=== PATIENT | male | born 1955 | race Caucasian/White ===

== ENCOUNTER 2022-08-24 12:34 | Outpatient (CLI) | payer MEDICARE, SELFPAY ==
--- NOTE | ~2022-08-24 | CT_ITS ---
CT of the Abdomen and Pelvis: Indication: Gross hematuria Technique: 2.5 mm axial scans were obtained through the abdomen and pelvis prior to and following in travenous administration of 130 cc of Omnipaque 350. Dose reduction technique was used on this scan b y utilizing automated exposure control and iterative reconstruction technique. The dose-length produc t (DLP) was 1044.84 mGy-cm. Findings: Scans through the lung bases demonstrate a 1.5 cm left lower lobe pulmonary nodule with mu ltiple adjacent subcentimeter satellite nodules.. The liver, spleen, pancreas, gallbladder, and adrenal glands are within normal limits. Bilateral azael l cysts are present. There are 2 adjacent stones in the distal left ureter measuring approximately 3 mm in diameter each. No hydronephrosis. No evidence of aortic aneurysm. No lymphadenopathy. No bowel obstruction or bowel wall thickening. There is no evidence to suggest acute appendicitis. Images through the pelvis were performed. Urinary bladder unremarkable. Prostate gland is enlarged. N o ascites. Impression: 2 adjacent 3 mm stones in the distal left ureter. No hydronephrosis. Enlarged prostate gland. 1.5 cm left lower lobe pulmonary nodule with multiple nearby subcentimeter satellite nodules. This le shelby is indeterminate, but neoplasm is a consideration. Consider tissue sampling and/or PET/CT to fur ther evaluate. Reviewed, dictated and finalized at location . Impression: 2 adjacent 3 mm stones in the distal left ureter. No hydronephrosis. Enlarged prostate gland. 1.5 cm left lower lobe pulmonary nodule with multiple nearby subcentimeter sate llite nodules. This lesion is indeterminate, but neoplasm is a consideration. C onsider tissue sampling and/or PET/CT to further evaluate.
--- NOTE | ~2022-08-24 | XR_ITS ---
XR abdomen/kub 1V 08/24/2022 14:48 Indication: Gross hematuria Procedure: KUB Comparison: No prior studies for comparison. Findings: Bowel gas pattern is nonobstructive. Moderate colonic fecal loading. There are are pelvic c alcifications, compatible with phleboliths. No acute osseous abnormality. Impression: 1: No acute abdominal abnormality. Reviewed, dictated and finalized at location B. Impression: 1: No acute abdominal abnormality.
[2022-08-24 13:56] LABS: Estimated Glomerular Filt Rate > 60
== END 2022-08-24 12:35 | disposition home or self-care (01) ==
PROVIDERS: PCP Family Medicine Sports Medicine; Visit Provider Nurse Practitioner Adult Health
DX: R31.0 Gross hematuria (principal); N20.1 Calculus of ureter; N40.0 Benign prostatic hyperplasia without lower urinary tract symptoms; R91.1 Solitary pulmonary nodule
CPT/HCPCS: 74018; 74178; Q9967

== ENCOUNTER 2022-09-26 09:01 | Outpatient (CLI) | payer MEDICARE, SELFPAY ==
--- NOTE | ~2022-09-26 | CT_ITS ---
Non-contrast CT scan of the Abdomen and Pelvis Clinical indication: Left ureteral stone Technique: 2.5 mm axial scans were obtained through the abdomen and pelvis without intravenous or or al contrast. Dose reduction technique was used on this scan by utilizing automated exposure control a nd iterative reconstruction technique. The dose-length product (DLP) was 192.29 mGy-cm. COMPARISON: 08/24/2022 Findings: Images through the lung bases reveal stable 1.4 cm left basilar pulmonary nodule. Distal left ureteral stone or adjacent stones are stable in position and size from prior exam. No hyd ronephrosis. No right renal or right ureteral stones. No right hydronephrosis. The liver, spleen, pancreas, gallbladder, and adrenals appear normal. There is no aortic aneurysm. There is no evidence of bowel obstruction. Images through the pelvis were performed. There is no evidence of ascites or lymphadenopathy. Urinary bladder unremarkable. Prostate gland is enlarged, unchanged. Impression: Stable distal left ureteral stones. No hydronephrosis. Stable 1.4 cm with basilar pulmonary nodule, indeterminate. Again, consider tissue sampling and/or PE T CT to further evaluate. At a minimum, 3 month follow-up CT is advised. Enlarged prostate gland. Reviewed, dictated and finalized at [facility]. Impression: Stable distal left ureteral stones. No hydronephrosis. Stable 1.4 cm with basilar pulmonary nodule, indeterminate. Again, consider tis tre sampling and/or PET CT to further evaluate. At a minimum, 3 month follow-up CT is advised. Enlarged prostate gland.
--- NOTE | ~2022-09-26 | XR_ITS ---
Supine and upright views of the abdomen Clinical history: Left ureteral stone COMPARISON: 08/24/2022 Findings: Bowel gas pattern is nonspecific. No evidence for obstruction or free air. No abnormal mass lesion or calcification is seen. Pelvic phleboliths noted. Osseous structures are intact. Impression: No significant abnormality is seen. Reviewed, dictated and finalized at [facility]. Impression: No significant abnormality is seen.
== END 2022-09-26 09:02 | disposition home or self-care (01) ==
PROVIDERS: PCP Family Medicine Sports Medicine; Visit Provider Nurse Practitioner Adult Health
DX: N20.1 Calculus of ureter (principal); N40.0 Benign prostatic hyperplasia without lower urinary tract symptoms; R91.1 Solitary pulmonary nodule
CPT/HCPCS: 74018; 74176

== ENCOUNTER 2022-10-10 08:39 | Outpatient (CLI) | payer MEDICARE, SELFPAY ==
[2022-10-10 09:23] LABS: Anion Gap 2 mmol/L (8-16); Blood Urea Nitrogen 16 mg/dL (9-20); Calcium 9.1 mg/dL (8.4-10.2); Carbon Dioxide 30 mmol/L (22-30); Chloride 104 mmol/L (98-107); Estimated Glomerular Filt Rate > 60; Glucose 92 mg/dL (65-110); Potassium 3.8 mmol/L (3.4-5.0); Sodium 136 mmol/L (137-145)
--- NOTE | 2022-10-10 09:30 | ECG_ITS ---
Measurements Intervals [place] Rate: 63 P: -9 NV: 186 QRS: -15 QRSD: 100 T: 31 QT: 393 QTc: 403 Interpretive Statements SINUS RHYTHM INCOMPLETE RIGHT BUNDLE BRANCH BLOCK BORDERLINE ECG NO PREVIOUS ECG AVAILABLE FOR COMPARISON Electronically Signed On 10-10-2022 9:32:53 CDT by Dale Rodgers D.O.
== END 2022-10-10 08:40 | disposition home or self-care (01) ==
LOC: ANHSURGERY 08:45
PROVIDERS: Anesthesiology; PCP Family Medicine Sports Medicine; Visit Provider Urology
DX: Z51.81 Encounter for therapeutic drug level monitoring (principal); I10 Essential (primary) hypertension; Z01.818 Encounter for other preprocedural examination; I45.10 Unspecified right bundle-branch block
CPT/HCPCS: 36415; 80048; 93005

== ENCOUNTER 2022-10-11 03:28 | Day surgery (SDC) | payer MEDICARE, SELFPAY ==
[2022-10-09 15:31] VITALS: BMI 25.2
--- NOTE | 2022-10-09 15:48 | PC.NURSE ---
Report to the Outpatient Waiting Room, entrance under the green pavilion located off [facility], at time __7:30AM on date _10/11/22 . Planned Procedure Time: __9:30AM . Time changes happen often and if your time is changed the preop area will call you the afternoon before. - You and your visitor will be asked to self-screen and do not enter if you have any COVID symptoms. - A mask is optional within the hospital at this time. Patients may have clear liquids (water, carbonated beverages, clear teas, apple juice) until 3 hours prior to surgery with a maximum of 20 ounces. - No food from midnight until time of surgery Take the following medications with a SIP of water the morning of surgery: __NONE DO NOT STOP ANY OF YOUR OTHER PRESCRIPTION MEDICATIONS PRIOR TO SURGERY ?EXCEPT THE FOLLOWING Medications to discontinue per physician NONE Date to take last dose Please no make-up, nail frisian, hairspray, perfume, deodorant, or body powder the day of surgery. No jewelry (including any body piercings) or valuables the day of surgery, leave them at home. Please take a shower or bath the night before, or the morning of, surgery with an antibacterial soap. Wear comfortable, loose fitting clothing. Children are encouraged to wear pajamas. - Jewelry must be removed prior to entering the operating room. Rings and piercings that are not removed may be cut off. - The hospital will not accept responsibility for valuables. - Please leave all valuables, including medications, at home the day of surgery. If you are going home after surgery, a licensed route sales delivery driver must drive you home. - NO public transportation without another adult if you receive anesthesia. - We recommend that an adult stay with you for 24 hours following discharge. - We also recommend that you do not drive, make important decision, drink alcoholic beverages, or take any drugs that were not prescribed by your health care provider for at least 24 hours after your discharge time. Follow any additional instructions given to you from your surgeon. If you or anyone in your household have experienced Covid symptoms in the past week, please notify your surgeon or the nurse liaison at the phone number below for possible testing. Telephone instructions given to __PATIENT and asked if any additional questions and then verbalized understanding. Patient advised to call surgeon office or pre surgery nurse liaison [phone] if any additional questions.
--- NOTE | 2022-10-10 07:19 | PM.HPGS ---
History of Present Illness History of Present Illness Consent: Risks, benefits, and alternatives have been discussed and questions answered. Patient agrees to proceed with procedure. Chief complaint: Lt Ureteral Stone Narrative: Florentino Hatfield is a 67 year old male is well known to me with a long history of BPH symptoms. He recently underwent evaluation for gross hematuria. CT imaging revealed a 2-3 mm left distal ureteral calculus. This continues to cause him problems and, after discussion, he is elected for endoscopic extraction. There were no other significant upper urinary tract findings on his CT scan. He is aware of the risk of this procedure including, but not limited to, adverse cardiopulmonary events, hematuria in the to place a ureteral stent. Review of Systems Cardiovascular: Cardiovascular: Denies chest pain, Denies lightheadedness, Denies palpitations and Denies dyspnea Respiratory: Respiratory: Denies dyspnea Gastrointestinal: Gastrointestinal: Denies diarrhea, Denies nausea and Denies vomiting Genitourinary: Genitourinary: Denies hematuria and Denies dysuria Endocrine: Endocrine: Denies palpitations [facility] Social History Social History Smoking packs per day: 1 Smoking cigarettes per day: 20.0 Years smoked: 2 Smoking pack-years: 2.00 Smoking status: Former smoker Tobacco type: cigarettes Smoking end date: 09/29/73 Substance use: never Living arrangements: alone Spiritual care concerns: No Meds Home Medications and Allergies Home Medications Medication Instructions Recorded Confirmed Type atorvastatin 20 mg tablet 20 mg PO DAILY 10/09/22 10/09/22 History hydrochlorothiazide 12.5 mg capsule 12.5 mg PO QAM 10/09/22 10/09/22 History Allergies Allergy/AdvReac Type Severity Reaction Status Date / Time No Known Allergies Allergy Verified 10/09/22 15:29 Exam Const: General: no acute distress Resp: Effort & Inspection: normal respiratory effort GI: Inspection: non-distended GI Palp: No abdominal tenderness and No Guarding due to palpation present (GI) Auscultation: normal bowel sounds Assessment and Plan Assessment and plan (1) Gross hematuria: Code(s): R31.0 - Gross hematuria Status: Acute (2) Left ureteral calculus: Code(s): N20.1 - Calculus of ureter Status: Acute Assessment and Plan: cystoscopy, left ureteroscopy with stone extraction, possible laser lithotripsy, retrograde pyelography and stent placement
[2022-10-11] VITALS (8 sets, daily range): BP systolic 106–133; BP diastolic 73–92; PULSE 56–70; RESP 12–16; TEMP 36.4–36.7; O2SAT 96–99
--- NOTE | ~2022-10-11 | XR_ITS ---
EXAMINATION: XR stent kub - surgery DATE: 10/11/2022 10:45 INDICATION: Internal ureteral stent placement TECHNIQUE: 2 fluoroscopic images of the abdomen and pelvis were obtained during procedure performed dian Dumont. Radiologist was not present for the imaging or procedure. The amount of fluoroscopy harmony e used during this procedure was 0.4 minutes. COMPARISON: CT dated 09/18/2022 FINDINGS: Interval placement of a left internal ureteral stent which is in expected position with loops formed over the expected position of the left renal pelvis and the bladder. There are several phleboliths in the pelvis. No stones seen along the course of the left internal ureteral stent. IMPRESSION: 1. Left internal ureteral stent in expected position. 2. Prior distal left ureteral stones no longer visualized and has likely passed or been extracted. Co rrelate with procedure note for further detail. Reviewed, dictated and finalized at location A. IMPRESSION: 1. Left internal ureteral stent in expected position. 2. Prior distal left ureteral stones no longer visualized and has likely passed or been extracted. Correlate with procedure note for further detail.
--- NOTE | 2022-10-11 06:24 | WPDHPUPDATE1 ---
History and Physical Update Update Date/Time: 10/11/22 06:24 History and Physical has been reviewed, including an updated exam of the patient. There are NO changes in the patient's condition. Risks, benefits, and alternatives have been discussed and questions answered. Patient agrees to proceed with procedure.
[2022-10-11] MEDS: LACTATED RINGERS 1,000 ML 30 ML IV CONT ×2 (08:47→11:40)
--- NOTE | 2022-10-11 09:02 | WPDANESEPPF ---
Anes - Initial Pre Proc Eval Procedure: Operation Date: 10/11/22 09:30 Proposed Procedures p Cystoscopy, Left Ureteroscopy, Left Stone Extraction, Possible Left Retrograde Pylelogram, Possible Left Stent Placement, Possible Holmium Laser - Pee Dumont MD Date/Time: 10/11/22 09:02 Surgeon: Pee Dumont MD Pre Op Diagnosis: Lt Ureteral Stone Patient Data Age: 67 Gender: M Height: 1.78 m Weight: 79.6 kg Allergies Allergy/AdvReac Type Severity Reaction Status Date / Time No Known Allergies Allergy Verified 10/11/22 08:26 Home Medications Medication Instructions Recorded Confirmed Type atorvastatin 20 mg tablet 20 mg PO DAILY 10/09/22 10/09/22 History hydrochlorothiazide 12.5 mg capsule 12.5 mg PO QAM 10/09/22 10/09/22 History Patient hx anesthesia problems: none Family hx anesthesia problems: none Results Review: All pre-operative results and documents have been reviewed as part of the pre-operative evaluation. [facility] Past Medical History Medical History (Updated 10/11/22 @ 09:02 by Yaya Hartmann MD) HTN (hypertension) Hyperlipidemia Surgical History Surgical History (Updated 10/11/22 @ 09:05 by Yaya Hartmann MD) H/O colonoscopy Social History Social History Smoking packs per day: 1 Smoking cigarettes per day: 20.0 Years smoked: 2 Smoking pack-years: 2.00 Smoking status: Former smoker Tobacco type: cigarettes Smoking end date: 09/29/73 Substance use: never Living arrangements: alone Spiritual care concerns: No Anes - Eval Final PreProcedure Day of Procedure 10/11/22 09:02 Patient weight: normal Heart: regular rate and rhythm Lungs: clear to auscultation Airway: Mallampati scale class II Neurological: alert and oriented Last oral intake: >/= 8 hours ASA classification: II Emergent: no Anesthetic plan: proceed Anesthesia type and monitoring: general GIVS and standard monitoring Results Review: All pre-operative results and documents have been reviewed as part of the pre-operative evaluation. Informed Consent: The patient's anesthetic plan and its attendant risks and benefits were discussed with the patient/family/POA. Questions were solicited and answers provided to the satisfaction of the patient/family/POA.
[2022-10-11] MEDS: ceFAZolin 2 GM/D5W 50 ML 2 GM/50 ML BAG IVPB (09:58)
[2022-10-11] MEDS: LIDOCAINE HCL 2% GEL UROJET 10 ML PKG MUCOUS MEM (10:13)
--- NOTE | 2022-10-11 10:39 | P.OP_ITS ---
Procedure Note - Detailed Date of Procedure 10/11/22 Pre-op Diagnosis Lt Ureteral Stone Post-op Diagnosis Same Procedure Performed Cystoscopy, left ureteroscopy with laser lithotripsy, stone extraction and ureteral stent placement Surgeon Pee Dumont MD Anesthesia General Findings Impacted left distal ureteral stone Description of Procedure patient is brought to the operative suite was prepped draped in routine sterile fashion while in dorsal lithotomy position after the uneventful induction of a general LMA anesthetic. Cystoscopy is undertaken with a 19 F rigid cystoscope. The patient has notable prostate enlargement with a moderate size median lobe protruding into the base of his bladder. This makes identification of his ureteral orifice ease and access to his ureteral orifices a little challenging. I was able to place a 0.035 in glidewire in the left renal pelvis and dilated distal ureter under fluoroscopy. Ureteroscopy with a short tapered semi-rigid ureteral scope demonstrated a stone in his left ureter that was impacted by sign ificant tran ureteral edema. This stone also appeared to be larger than the 2-[address] scan. I used a 200 micron holmium laser fiber to dust the stone. All large fragments were removed with a 1.9 F disposable stone basket. I placed a 4.8 F variable length stent with the proximal coil in the renal pelvis and distal coil in the bladder. Scopes wires removed. Patient tolerated the procedure well and was taken recovery room good condition. Drains Yes Pathology None sent Complications No immediate complications Condition Stable Disposition PACU
== END 2022-10-11 12:48 | disposition home or self-care (01) ==
PROVIDERS: PCP Family Medicine Sports Medicine; Visit Provider Urology
PROC: (CPT 52352; principal; 2022-10-11 09:30)
DX: N20.1 Calculus of ureter (principal); I10 Essential (primary) hypertension; E78.5 Hyperlipidemia, unspecified; N40.0 Benign prostatic hyperplasia without lower urinary tract symptoms; Z87.891 Personal history of nicotine dependence
CPT/HCPCS: 52356; 36415; 80048; 82365; 88300; 93005; C1769; C2617; J0690; J1100; J2250; J2405; J2704; J3010; J7120

== ENCOUNTER 2023-02-27 10:12 | Outpatient (CLI) | payer MEDICARE, SELFPAY ==
--- NOTE | ~2023-02-27 | XR_ITS ---
XR abdomen/kub 1V 02/27/2023 10:31 INDICATION: History of kidney stones TECHNIQUE: KUB COMPARISON: 09/26/2022 FINDINGS: Bowel gas pattern is normal. There is no evidence of free air, mass, organomegaly, ascites or obstruction. No abnormal calculi are seen. The bones appear intact. Calcifications in the pelvi s are believed to be phleboliths. IMPRESSION: 1: No acute abdominal abnormality identified. Reviewed, dictated and finalized at location B. 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
== END 2023-02-27 10:13 | disposition home or self-care (01) ==
PROVIDERS: PCP Family Medicine; Visit Provider Urology
DX: Z87.442 Personal history of urinary calculi (principal)
CPT/HCPCS: 74018

== ENCOUNTER 2023-09-30 08:36 | Outpatient (CLI) | payer MEDICARE, SELFPAY ==
--- NOTE | ~2023-09-30 | XR_ITS ---
XR abdomen/kub 1V Ordering provider: Pee Dumont MD History: . HX OF KIDNEY STONES, NO CURRENT COMPLAINTS . Comparison: February 27, 2023 FINDINGS: BOWEL: Nonobstructive bowel gas pattern. ORGANOMEGALY: None. SIGNIFICANT PATHOLOGIC CALCIFICATIONS: None. OTHER: No free air is seen under the diaphragm. Left sacroiliitis. Mild degenerative spine. IMPRESSION: NO ACUTE ABDOMINAL FINDINGS. Reviewed, dictated and finalized at location A.
== END 2023-09-30 08:37 | disposition home or self-care (01) ==
PROVIDERS: PCP Family Medicine; Visit Provider Urology
DX: Z87.442 Personal history of urinary calculi (principal)
CPT/HCPCS: 74018